=== PATIENT | male | born 1980 | race Caucasian/White ===

== ENCOUNTER 2025-07-24 16:38 | Emergency (ER) | payer OTHER, SELFPAY ==
[2025-07-24 17:42] VITALS: BP 142/96; PULSE 63; RESP 16; TEMP 36.4; O2SAT 100; BMI 23.7
--- OUTSIDE RECORDS SUMMARY | 2025-07-24 17:50 | XMS_ITS | Clinical Summary ---
Author Organization [facility] Address [address] [place] [id number] Care Team Providers Care Certified Technician Name Role Phone Analy Cortes MD Primary Care Provider Unavailab le Social History Tobacco Use Types Packs/Day Years Used Date Smoking Tobacco: Never Assessed Sex and Gender Information Value Date Recorded Sex Assigned at Not on file Legal Sex Male 4:52 PM EST Gender Identity Not on file Sexual Orientation Not on file Plan of Treatment Health Maintenance Due Date Last Done Comments CT Colonography 1979 Colonoscopy 1979 Colorectal Cancer Screening 1979 FIT-DNA 1979 FIT 1979 FOBT 1979 Sigmoidoscopy 1979 Hepatitis B (HepB) Vaccine ( 1 of 3 - 19+ 3-dose series) 1998 Tdap/Td Vaccine >11 yo (1 - Tdap) 1998 Annual SDOH Screening 11/05/2024 Influenza Vaccine (#1) 2025 HPV Vaccine Aged Out No longer eligi ble based on patient's age to complete this topic Haemophilus Influenzae Type B (Hib) Vaccine Aged Out No longer eligible b ased on patient's age to complete this topic Hepatitis A (HepA) Vaccine Aged Out N o longer eligible based on patient's age to complete this topic Meningococcal ACWY Aged Out No longer eligible based on patient's age to complete this topic Pneumococcal Vaccines 6-49 yo Risk Aged Out No longer eligible based on patient's age to complete this topic Polio (IPV) Aged Out No longer eligi ble based on patient's age to complete this topic Rotavirus (RV) Vaccine Aged Out No lo nger eligible based on patient's age to complete this topic Care Teams Certified Technician Relationship Specialty Start Date End Date Analy Cortes MD PCP - General 08/03/12
[2025-07-24 18:09] VITALS: O2SAT 100
--- NOTE | 2025-07-24 18:20 | ED_ITS ---
Discharge Plan Disposition Patient Disposition: Home, Self-Care Referrals Follow up/Referrals: Yuni Goyal APRN [Primary Care Provider, Medical] - See instructions Activity Restrictions/Add. Instructions Additional Instructions/Restrictions: Your CT scan today showed no collapsed lung or rib fractures. You likely have a deep bruise. You can take Tylenol and ibuprofen as well as lidocaine patches to help with your symptoms. Follow-up with your primary care physician if symptoms do not improve. If you develop any new or worsening symptoms, or if you become concerned for your health for any reason, return to the emergency department for evaluation. Clinical Impressions Clinical Impression: Rib pain on left side Print Language Print Language: Sinhala Discharge ED Provider: Domingo Reese Adult HPI General Chief complaint: Fall Stated complaint: fall a/o 07/24, L rib pain Time Seen by Provider: 07/24/25 18:19 Mode of Arrival: Ambulatory Source of Information: Patient Description of Symptoms (Recalled from ER Triage Doc. by RN): Patient states he was avoiding a wasp and slipped on the wooden floor and landed on his left ribs around 1600 this afternoon. patient complaining of pain in left rib area when he takes a deep breath in. Patient has not taken any medication for it, only applied ice. History of Present Illness HPI narrative: Oliver Wright is a 45y male with a history of hypertension who presents to the emergency department for complaints of left-sided rib pain after a fall. Patient states that at 4 PM, he was in his home and a wasp flew in front of his face. He jerked backwards and slipped on a hardwood in his socks. He states that he laid on his left posterior ribs on the wooden threshold on the floor. He denies any head trauma or loss of consciousness. He states that since then, he has had pain in the upper left posterior rib cage near his scapula. He does state that it hurts to take a deep breath and sends a sharp pain down his flank. He denies any other injuries or trauma. He has not taken any medications prior to arrival. Related Data Allergies Allergy/AdvReac Type Severity Reaction Status Date / Time No Known Allergies Allergy Verified 07/24/25 17:49 [facility] Disclaimer: The information contained in this section may have been updated after the patient was seen, as this information can be updated by other users. Social History Smoking Status: Current every day smoker alcohol intake: never current occupational status: employed Travel in the last 8 weeks?: None ROS Obtained: Yes Systems reviewed as appropriate & no additional complaints except as documented Physical Exam General General appearance: alert and in no apparent distress Head Head exam: atraumatic Eye Eye exam: Present normal appearance ENT ENT exam: Present normal external ear exam Neck Neck exam: Present full ROM Chest Chest inspection: Present symmetric chest wall rise and tenderness Expanded Chest Exam Male Torso: 2 1. tenderness, no deformity or rash Respiratory Respiratory exam: Present normal lung sounds bilaterally; Absent respiratory distress Cardiovascular Cardiovascular exam: Present regular rate and normal rhythm Abdominal Exam Abdominal exam: Present soft; Absent tenderness or guarding exam: Present deferred Extremities Exam Extremities exam: Present normal inspection Back Exam Back exam: Present normal inspection Neurological Exam Neurological exam: Present alert and oriented X3 Psychiatric Psychiatric exam: Present normal affect Skin Skin exam: Present warm and dry Medical Decision Making Medical Records Screening: Per USPSTF and CDC recommendations, given the prevalence of disease in our region, it is our hospital?s policy to screen for HIV and viral Hepatitis for all patients aged 18 and over and those with ongoing risk factors. Noe Inquiry Pt receiving controlled substance: No Vital Signs: 07/24/25 17:42 07/24/25 18:07/24/25 20:10 Temperature 97.6 F 97.9 F Temperature Source Oral Oral Pulse Rate 58 L Pulse Rate [Right Brachial] 63 Respiratory Rate 16 16 Blood Pressure 133/87 Blood Pressure [Right Arm] 142/96 H Blood Pressure Mean [Right Arm] 111 Blood Pressure Source Automatic Cuff Blood Pressure Source [Right Arm] Automatic Cuff Blood Pressure Position Sitting Blood Pressure Position [Right Arm] Sitting 02 Sat by Pulse Oximetry 100 100 Oxygen Delivery Method Room Air Room Air Room Air Orders (Tests/Meds): ED MEDICATIONS Discontinued Medications Generic Name Dose Route Start Last Admin Trade Name Freq PRN Reason Stop Dose Admin Acetaminophen 1,000 mg 07/24/25 18:24 07/24/25 18:40 Acetaminophen 500mg Tab PO 07/24/25 18:25 1,000 mg ONCE ONE Administration Ibuprofen 800 mg 07/24/25 18:24 07/24/25 18:41 Ibuprofen 400 Mg Tablet PO 07/24/25 18:25 800 mg ONCE ONE Administration Lidocaine 1 each 07/24/25 18:24 07/24/25 18:41 Lidocaine 5% Transdermal Patch TD 07/24/25 18:25 1 each ONCE ONE Administration ORDERS Category Date Time Status CT chest wo con Stat Cat Scan 07/24/25 18:24 Completed Medical Decision Narrative: Oliver Wright is a 45y male with a history of hypertension who presents to the emergency department for complaints of left-sided rib pain after a fall. Patient states that at 4 PM, he was in his home and a wasp flew in front of his face. He jerked backwards and slipped on a hardwood in his socks. He states that he laid on his left posterior ribs on the wooden threshold on the floor. He denies any head trauma or loss of consciousness. He states that since then, he has had pain in the upper left posterior rib cage near his scapula. He does state that it hurts to take a deep breath and sends a sharp pain down his flank. He denies any other injuries or trauma. He has not taken any medications prior to arrival. On arrival, patient is hemodynamically stable, in no acute distress, breathing comfortably on room air with appropriate oxygen saturation. Physical exam, stated above, revealed a nontoxic male. He has breath sounds present bilaterally. No abnormal breath sounds are noted. He does have tenderness over the left posterior lateral ribs without deformity or step-off. No significant bruising or skin breakdown. He is mostly tender to the area directly underneath the scapula on the left.Differential diagnosis includes, but is not limited to: Rib fracture, pulmonary contusion, pneumothorax, scapular fracture, soft tissue injury, among others. The most morbid conditions were considered and workup was based on these. Patient was initially treated with 800 mg of oral ibuprofen, 1 g of oral Tylenol, lidocaine patch. To evaluate for bony injury as well as pneumothorax and pulmonary contusion, will obtain noncontrasted CT imaging of the chest. Patient does not have any midline cervical, thoracic or lumbar spine tenderness on exam. CT images interpreted by me personally. No pneumothorax or rib fractures or pulmonary contusions are appreciated. See radiology report for details. On reassessment, patient reports significant proving in his symptoms. It is felt that he likely has deep bruising as a source of his symptomatology. Recommended symptomatic control with Tylenol and ibuprofen as well as lidocaine patches. Started him to follow-up with his primary care physician if symptoms do not improve. Return precautions were given. All questions were answered. He demonstrated understanding and was in agreement with this plan. He was then discharged from the emergency department in stable condition. Critical Care Critical Care Time Critical Care Time: No
--- NOTE | 2025-07-24 18:24 | CT_ITS ---
PROCEDURE INFORMATION: Exam: CT Chest Without Contrast; Diagnostic Exam date and time: 07/24/2025 6:39 PM Age: 45 years old Clinical indication: Injury or trauma; Fall; Blunt trauma (contusions or hematomas); Additional info: Fall, left thoracic rib pain TECHNIQUE: Imaging protocol: Diagnostic computed tomography of the chest without contrast. Radiation optimization: All CT scans at this facility use at least one of these dose optimization techniques: automated exposure control; mA and/or kV adjustment per patient size (includes targeted exams where dose is matched to clinical indication); or iterative reconstruction. COMPARISON: No relevant prior studies available. FINDINGS: Lungs: Calcified granuloma within the right middle lobe. Pleural spaces: Normal. Heart: Normal. Coronary arteries: No visible coronary artery atherosclerotic calcification. Lymph nodes: Calcified right hilar lymph nodes, compatible with prior granulomatous disease. Vasculature: Unremarkable. No aortic aneurysm. Bones/joints: No acute fracture. Soft tissues: Normal. IMPRESSION: No acute thoracic abnormality.
[2025-07-24] MEDS: ACETAMINOPHEN 500MG TAB 1000 MG PO (18:40)
[2025-07-24] MEDS: LIDOCAINE 5% TRANSDERMAL PATCH 1 EACH TD (18:41)
[2025-07-24] MEDS: IBUPROFEN 400 MG TABLET 800 MG PO (18:41)
[2025-07-24 20:10] VITALS: BP 133/87; PULSE 58; RESP 16; TEMP 36.6; O2SAT 99
== END 2025-07-24 20:11 | disposition home or self-care (01) ==
PROVIDERS: Emergency Provider Student in an Organized Health Care Education/Training Program; PCP Nurse Practitioner
DX: R07.81 Pleurodynia (principal); F17.200 Nicotine dependence, unspecified, uncomplicated; W19.XXXA Unspecified fall, initial encounter
CPT/HCPCS: 71250; 99284; 99285